=== PATIENT | male | born 1975 | race Caucasian/White ===

== ENCOUNTER 2021-10-12 18:18 | Observation (INO) ==
[2021-10-12] MEDS ORDERED: CYCLOBENZAPRINE HCL 10 MG TAB PO STA (19:37)
--- NOTE | 2021-10-12 19:44 | Emergency Department Note ---
Impression & Plan Left arm pain, Hypertensive urgency ED Provider Note CHIEF COMPLAINT: Left upper extremity pain HISTORY OF PRESENT ILLNESS: This 45-year-old male patient presents to the emergency department via private vehicle accompanied by his complaining of pain in the left upper extremity x2 days. The patient states he has a history of cervical radiculitis and cervical disc disease. He had similar symptoms about 2 years ago and went through extensive work-up and was ultimately seen by [facility] who performed an MRI of his neck which showed the cervical disc disease. He states he was started on gabapentin at that time, but his pain ultimately seemed to resolve on its own and he discontinued the gabapentin, noting that it made him "act weird". The patient states he normally sleeps on his right side. On Monday morning, he slept for 2 hours on his left side. He notes his hand was tucked up underneath his head. Since that time, he has been experiencing pain in the left upper extremity. He takes Tylenol in the evenings, but notes "I do not want to be on medicine while at school". 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 He has been taking intermittent Tylenol and did take a few doses of naproxen without relief of his symptoms. The patient rates the pain as aching and 9/10. The pain is intermittent in the shoulder, tricep region, forearm, and hand. The patient denies numbness and tingling. He notes his hand feels swollen, but has not been weak and he has not dropped objects or lost control of his hand. The patient denies chest pain or shortness of breath. There was no head injury and no loss of consciousness. The patient denies headache, blurred vision, abdominal pain, nausea, or vomiting. The patient denies change in personality. The symptoms are nonexertional in nature but also not necessarily reproducible to palpation or movement. No chest pain or dyspnea. REVIEW OF SYSTEMS: A 10 system review of systems was completed with positives a nd pertinent negatives listed in the HPI. ALLERGIES: None PHYSICAL EXAM: VITALS: Vitals are noted on the nurse's note and reviewed by myself. Patient is severely hypertensive with a blood pressure of 226/122. GENERAL: This is a 45-year-old white male, in no acute distress, nondiaphoretic, well-developed well-nourished. SKIN: Capillary reflex less than 2 seconds. HEENT: Normocephalic. PERRLA. EOMI. Nares patent. Mucous membranes moist. Neck is supple without nuchal rigidity. Cervical spine is not tender to palpation. The patient does not have tenderness of the paraspinal muscles bilaterally. There is no lymphadenopathy. MUSCULOSKELETAL: The patient has full range of motion of the bilateral arms. Strength 5/5 of the bilateral upper extremities. The patient does have tenderness with palpation of the shoulder and triceps region, reproducing the tenderness he has been experiencing NEURO: Patient was alert and oriented to person place and time. Normal sensation to light and sharp touch. No focal neurologic deficits. HEART: Regular rate and rhythm without murmurs, gallops, rubs. LUNGS: CTA bilaterally without wheezes, rhonchi, rales. EKG: NSR with a ventricular rate of 100 bpm. Incomplete RBBB. RVH. No ST elevation or depression. No T-wave inversion EMERGENCY DEPARTMENT COURSE: I examined the patient. Concern for hypertensive urgency/emergency given blood pressure of 226/122. Repeat blood pressure the same. EKG performed by nursing staff and reviewed by myself as noted. X-ray imaging of the cervical spine as well as the chest performed reviewed by myself and radiologist as noted. IV access obtained, labs drawn. Patient was medicated with IV fluids, labetalol, cyclobenzaprine. Blood pressure did improve to 137/99. Labs concerning for detectable troponin of 0.023. No leukocytosis or anemia. INR 1.0. Blood glucose is elevated at 305. I d iscussed the case with my attending physician. We decided to repeat EKG and troponin at midnight, 4 hours from the initial testing as well as further evaluate his symptoms with CT angiogram imaging of the neck and chest. I discussed findings of work-up at this time with the patient and his at bedside. Discussed recommendations with the patient and his of further work-up. The patient was hesitant to want to stay for repeat laboratory evaluation and imaging to be completed, but did ultimately agree. The patient does note that he has not been taking his Metformin because he ran out of the prescription and has been having difficulty getting it from mail order. He was medicated with IV morphine and Zofran. The case was signed out to Zaid Arcos PA-C pending CT imaging, repeat troponin and EKG. Please see his dictation regarding final disposition and management of this patient. Differential diagnosis includes benign hypertension, hypertensive emergency, cardiovascular pathology, toxicologic, pheochromocytoma, electrolyte abnormality, renal disease, endorgan damage, cervical radiculopathy, Cervical strain, fracture, cervical disc disease, lymphadenitis, meningitis, tumor, arterial dissection, thyroiditis, parotitis, mastoiditis, neurologic, as well as other pathologies. I attest that I have personally reviewed the patient's current medication list. Patient was found to have an elevated blood pressure and was referred to their primary doctor for recheck and further treatment. The chart was completed utilizing [employer] voice recognition software. Grammatical errors, random word insertions, pronoun errors, and incomplete sentences are an occasional consequence of this system due to software limitations, ambient noise, and hardware issues. Any formal questions or concerns about the content, text, or information contained within the body of this dictation should be directly addressed to the provider for clarification. Past Med/Surg History Medical History Cervical radiculitis Social History Smoking Status: Never smoker Preferred Language: Citizen Of [place] Feels Safe at Home: Yes Results & Data (ED) Vital Signs Vital Signs - 24 hr 10/12/21 18:47 10/12/21 20:16 10/12/21 20:38 Temperature 36.1 C L Temperature Source Temporal Artery Scan Pulse Rate 98 H Pulse Rate [Right Finger] 101 H 92 H Respiratory Rate 20 20 20 Respiratory Effort / Characteristics Non-Labored Spontaneous Respiratory Depth Normal Blood Pressure 226/122 H Blood Pressure [Right Arm] 189/101 H 137/99 Blood Pressure Mean 156 Blood Pressure Mean [Right Arm] 130 111 Pulse Oximetry 94 93 93 Oxygen Delivery Method Room Air Room Air Room Air Sepsis New/Unexplained Change in Mental Status N/A Sepsis Action Taken by Nursing No Action Required 10/12/21 22:40 Temperature Temperature Source Pulse Rate Pulse Rate [Right Finger] 99 H Respiratory Rate 20 Respiratory Effort / Characteristics Non-Labored Spontaneous Respiratory Depth Normal Blood Pressure Blood Pressure [Right Arm] 206/110 H Blood Pressure Mean Blood Pressure Mean [Right Arm] 142 Pulse Oximetry 93 Oxygen Delivery Method Room Air Sepsis New/Unexplained Change in Mental Status Sepsis Action Taken by Nursing Laboratory Data Result diagrams: 10/12/21 20:05 10/12/21 20:05 Lab Results 10/12/21 10/12/21 10/12/21 Range/Units 20:05 20:05 20:05 WBC 10.02 (4.8-10.8) K/uL RBC 6.16 H (4.7-6.1) M/uL Hgb 17.1 (14.0-18.0) g/dL Hct 50.7 (42-52) % MCV 82.3 (80-100) fL MCH 27.8 (25-34) pg MCHC 33.7 (32-36) g/dL RDW Std Deviation 41.9 (36.4-46.3) fL RDW Coeff of Linda 14.1 (11.5-14.5) % Plt Count 326 (130-400) K/uL MPV 12.1 H (7.4-10.4) fL Immature Gran % (Auto) 0.2 % Neut % (Auto) 68.7 % Lymph % (Auto) 22.5 % [place] % (Auto) 6.7 % Eos % (Auto) 1.6 % Baso % (Auto) 0.3 % Neut # (Auto) 6.89 H (1.4-6.5) K/uL Lymph # (Auto) 2.25 (1.2-3.4) K/uL [place] # (Auto) 0.67 H (0.11-0.59) K/uL Eos # (Auto) 0.16 (0-0.5) K/uL Baso # (Auto) 0.03 (0-0.2) K/uL Immature Gran # (Auto) 0.02 (0.00-0.02) K/uL PT 9.8 (9.0-12.0) Seconds INR 1.0 (0.9-1.1) Sodium 133 L (136-145) mmol/L Potassium 4.2 (3.5-5.1) mmol/L Chloride 100 (98-107) mmol/L Carbon Dioxide 23 (21-32) mmol/L Anion Gap 10.0 (3-11) BUN 14 (7-18) mg/dl Creatinine 1.01 (0.6-1.4) mg/dl Est Cr Clr Drug Dosing 152.1 ml/min Est GFR ( Amer) 105.1 ml/min Est GFR (Non-Af Amer) 90.7 ml/min BUN/Creatinine Ratio 13.9 (10-20) Glucose 305 H* (70-99) mg/dl Calcium 9.3 (8.5-10.1) mg/dl Total Bilirubin 0.5 (0.2-1) mg/dl AST 17 (15-37) U/L ALT 18 (12-78) U/L Alkaline Phosphatase 70 (45-117) U/L Troponin I 0.023 (0-0.045) ng/ml Total Protein 7.5 (6.4-8.2) gm/dl Albumin 3.2 L (3.4-5.0) gm/dl Globulin 4.3 H (2.5-4.0) gm/dl Albumin/Globulin Ratio 0.7 L (0.9-2) Beta-Hydroxybutyric Acd (0.2-2.81) mg/dl Specimen Hemolysis Administered Medications Discontinued Medications Cyclobenzaprine HCl (Cyclobenzaprine Hcl 10 Mg Tab) 10 mg PO NOW STA Stop: 10/12/21 19:38 Last Admin: 10/12/21 19:51 Dose: 10 mg Documented by: [id number] Sodium Chloride (Nss 1000ml) 1,000 mls @ 999 mls/hr IV .Q1H1M ONE Stop: 10/12/21 20:51 Last Infusion: 10/12/21 21:23 Dose: 0 mls/hr Documented by: [id number] Admin: 10/12/21 20:18 Dose: 999 mls/hr Documented by: [id number] Ioversol (Optiray 320 125ml) 121 ml IV ONCE ONE Stop: 10/12/21 22:34 Last Admin: 10/12/21 22:33 Dose: 121 ml Documented by: [id number] Labetalol HCl (Labetalol Hcl Iv 5 Mg/Ml 20ml) 10 mg IV NOW STA Stop: 10/12/21 20:06 Last Admin: 10/12/21 20:18 Dose: 10 mg Documented by: [id number] Cosigned by: [id number] Labetalol HCl (Labetalol Hcl Iv 5 Mg/Ml 20ml) 10 mg IV NOW STA Stop: 10/12/21 22:45 Last Admin: 10/12/21 22:51 Dose: 10 mg Documented by: [id number] Cosigned by: [id number] Morphine Sulfate (Morphine Sulfate 10 Mg/Ml Carp/Vial) 8 mg IV NOW STA Stop: 10/12/21 21:28 Last Admin: 10/12/21 21:36 Dose: 8 mg Documented by: [id number] Ondansetron HCl (Ondansetron Inj 2 Mg/Ml 2 Ml Vial) 4 mg IV NOW STA Stop: 10/12/21 21:28 Last Admin: 10/12/21 21:36 Dose: 4 mg Documented by: [id number] Imaging Data Radiologist's Impression: Cervical Spine X-Ray 10/12/21 19:37 XR cervical spine 2 or 3V HISTORY: 45 years-old Male pain, LUE radiculopathy . Pain with left upper extremity radicular symptoms COMPARISON: Chest radiograph of same day TECHNIQUE: 3 views of the cervical spine FINDINGS: Mild intervertebral disc space narrowing at C5-C6 and C6-C7 with minimal spondylitic spurring and facet arthrosis. Slight kyphosis centered at C6 or C7. No acute fracture, subluxation or endplate erosion. No prevertebral swelling. IMPRESSION: 1. No acute fracture or subluxation. 2. Mild degenerative changes of the lower lumbar spine. ACT 112: Negative or not required by law. The above report was generated using voice recognition software. It may contain grammatical, syntax or spelling errors. Electronically signed by: Antonino Will M.D. 10/12/2021 8:20 PM Chest X-Ray 10/12/21 19:52 XR chest 1V not portable HISTORY: 45 years-old Male LUE pain . Pain of the left upper extremity COMPARISON: Cervical spine radiographs of same day TECHNIQUE: PA view of the chest FINDINGS: Cardiac silhouette is upper limits of normal in size. No pneumothorax, pleural effusion, airspace consolidation or overt pulmonary edema. Nonspecific interstitial coarsening of the lung bases. Mild degenerative changes of the shoulders and spine. IMPRESSION: Mild nonspecific bibasilar interstitial coarsening likely reflects atelectasis. A nonspecific pneumonitis could appear similarly. ACT 112: Negative or not required by law. The above report was generated using voice recognition software. It may contain grammatical, syntax or spelling errors. Electronically signed by: Antonino Will M.D. 10/12/2021 8:18 PM Discharge Plan Visit Data Chief Complaint: Neck Injury/Pain Stated Complaint: NECK PAIN ED Provider: Rich Bass ED Midlevel Provider: Zaid Arcos Discharge Problem: Left arm pain, Hypertensive urgency Patient Disposition: Still a Patient Forms Stand Alone Forms: [facility] Referrals Referrals: Ariel Jameson Jr, DO [Physician] -
[2021-10-12] MEDS ORDERED: SODIUM CHLORIDE 0.9% 1000ML 1,000 ML IV ONE (19:51)
[2021-10-12] MEDS ORDERED: LABETALOL HCL IV 5 MG/ML 20ML IV STA ×2 (20:05→22:44)
--- NOTE | 2021-10-12 20:19 | XRay Report ---
XR chest 1V not portable HISTORY: 45 years-old Male LUE pain . Pain of the left upper extremity COMPARISON: Cervical spine radiographs of same day TECHNIQUE: PA view of the chest FINDINGS: Cardiac silhouette is upper limits of normal in size. No pneumothorax, pleural effusion, airspace con solidation or overt pulmonary edema. Nonspecific interstitial coarsening of the lung bases. Mild dege nerative changes of the shoulders and spine. IMPRESSION: Mild nonspecific bibasilar interstitial coarsening likely reflects atelectasis. A nonspec ific pneumonitis could appear similarly. ACT 112: Negative or not required by law. The above report was generated using voice recognition software. It may contain grammatical, syntax o r spelling errors. Electronically signed by: Antonino Will M.D. 10/12/2021 8:18 PM
--- NOTE | 2021-10-12 20:22 | XRay Report ---
XR cervical spine 2 or 3V HISTORY: 45 years-old Male pain, LUE radiculopathy . Pain with left upper extremity radicular sympto ms COMPARISON: Chest radiograph of same day TECHNIQUE: 3 views of the cervical spine FINDINGS: Mild intervertebral disc space narrowing at C5-C6 and C6-C7 with minimal spondylitic spurring and fac et arthrosis. Slight kyphosis centered at C6 or C7. No acute fracture, subluxation or endplate erosio n. No prevertebral swelling. IMPRESSION: 1. No acute fracture or subluxation. 2. Mild degenerative changes of the lower lumbar spine. ACT 112: Negative or not required by law. The above report was generated using voice recognition software. It may contain grammatical, syntax o r spelling errors. Electronically signed by: Antonino Will M.D. 10/12/2021 8:20 PM
[2021-10-12 20:26] LABS: Basophils # (auto) 0.03 K/uL (0-0.2); Basophils % (auto) 0.3 %; Eosinophils # (auto) 0.16 K/uL (0-0.5); Eosinophils % (auto) 1.6 %; Hematocrit (blood only) 50.7 % (42-52); Hemoglobin 17.1 g/dL (14.0-18.0); Immature Granulocytes # (auto) 0.02 K/uL (0.00-0.02); Immature Granulocytes % (auto) 0.2 %; Lymphocytes # (auto) 2.25 K/uL (1.2-3.4); Lymphocytes % (auto) 22.5 %; Mean Corpuscular Hemoglobin 27.8 pg (25-34); Mean Corpuscular Hgb Conc 33.7 g/dL (32-36); Mean Corpuscular Volume 82.3 fL (80-100); Mean Platelet Volume 12.1 fL (7.4-10.4); Monocytes # (auto) 0.67 K/uL (0.11-0.59); Monocytes % (auto) 6.7 %; Neutrophils # (auto) 6.89 K/uL (1.4-6.5); Neutrophils % (auto) 68.7 %; Platelet Count 326 K/uL (130-400); RDW Coefficient of Variation 14.1 % (11.5-14.5); RDW Standard Deviation 41.9 fL (36.4-46.3); Red Blood Count 6.16 M/uL (4.7-6.1); White Blood Count 10.02 K/uL (4.8-10.8)
[2021-10-12 20:40] LABS: Prothrombin Time 9.8 Seconds (9.0-12.0)
[2021-10-12 21:01] LABS: Albumin Globulin Ratio 0.7 (0.9-2); Albumin Level 3.2 gm/dl (3.4-5.0); BUN Creatinine Ratio 13.9 (10-20); Bilirubin,Total 0.5 mg/dl (0.2-1); Calcium 9.3 mg/dl (8.5-10.1); Creatinine Clr Calc Pharmacy 152.1 ml/min; Est GFR (African American) 105.1 ml/min; Est GFR (Non-African American) 90.7 ml/min; Globulin 4.3 gm/dl (2.5-4.0); Potassium 4.2 mmol/L (3.5-5.1); Total Protein 7.5 gm/dl (6.4-8.2); Troponin I 0.023 ng/ml (0-0.045)
[2021-10-12] MEDS ORDERED: ONDANSETRON INJ 2 MG/ML 2 ML VIAL IV STA (21:27)
[2021-10-12] MEDS ORDERED: MoRPHine SULFATE 10 MG/ML CARP/VIAL IV STA (21:27)
--- NOTE | 2021-10-12 22:10 | Emergency Department Note ---
Impression & Plan Hypertensive urgency, Left arm pain ED Provider Note Patient care was assumed from Evangelina Tejeda PA-C, at the time of shift change. Please see Ms. Tejeda's dictation for full history of present illness and emergency department course prior to my assumption of care. In short, the patient has been experiencing vague left shoulder pain that may be cervical radicular in nature, as he has had this in the past. Upon arrival the patient was very hypertensive, and ultimately did require labetalol to improve his blood pressure. He does have a detectable troponin that is technically negative, however at the time of shift change repeat EKG, CT scans, and troponin are pending. He is an uncontrolled diabetic with glucose greater than 300. Patient CT scans are as below: Preliminary Findings Only See Final Report For Complete Findings CT C SPINE: Mild degenerative disc disease and facet arthrosis throughout the cervical spine. No acute fracture or traumatic subluxation is identified. There is slight straightening of the normal cervical curvature suggesting spasm. Thecal sac contents are not well visualized on this examination due to body habitus and technique. If there is clinical concern for disc herniation consider MRI for better visualization Radiologist:Dulce Maria Hosutonne:[phone] Preliminary Findings Only See Final Report For Complete Findings CTA CHEST: The pulmonary arterial tree is well-opacified with contrast. There is moderate motion artifact blurring the pulmonary vasculature. No pulmonary emboli are identified. The thoracic aorta is nondilated. There is no aneurysm or dissection. The heart is not enlarged. No mediastinal or axillary lymph and up the arm mass is seen. The lungs are moderately inflated. There is a trace amount of scattered interstitial infiltrate or perihilar subsegmental atelectasis. No focal consolidation is seen. No pneumothorax or pleural effusion is present. Limited images of the upper abdomen appear unremarkable. Mild degenerative changes in the thoracic spine. No fracture or bone lesion identified. Radiologist:SHIRLEY Houstonhone:[phone] Preliminary Findings Only See Final Report For Complete Findings CTA NECK: The aortic arch is nondilated. The great vessel origins are widely patent. The carotid bifurcation is normal bilaterally. No atherosclerotic plaque, stenosis, or dissection is seen involving the common or internal carotid arteries. The vertebral arteries widely patent bilaterally. No stenosis or dissection. Mild degenerative changes in the lower cervical spine. Probable mild spinal stenosis at C5-6 with the canal measuring 9-10 mm. Radiologist:Rich Mathias, [facility]:[phone] Patient's repeat EKG is essentially identical to previous. Repeat troponin is detectable, and is higher than initial troponin, which is concerning, as it is trending upwards. I did have a lengthy discussion with the patient and family regarding options of care. The patient at a minimum seems to be in hypertensive urgency with some heart strain. His blood pressure is controlled with labetalol, and evidently he does not take any home blood pressure medications. The patient feels that his symptoms may be related to his neck, however with an elevating troponin it does not seem reasonable to send him home. Covid was performed and negative. The case was discussed with the on-call hospitalist team who agreed to evaluate the patient here at bedside. Please see their dictation for further patient course, plan, disposition. Past Med/Surg History Medical History (Updated 10/13/21 @ 11:56 by Daniel Zuleta DO) Cervical radiculitis Diabetes mellitus Hyperlipidemia Morbid obesity with BMI of 50.0-59.9, adult Social History Smoking Status: Never smoker Hx Alcohol Use: No Hx Substance Use: No Preferred Language: Guyanese Communication Ability: Effective Air Grinder Required: No Beliefs That Will Affect Care: None Current Living Situation: Spouse Feels Safe at Home: Yes Assistive Devices: Glasses Allergies Allergies Allergy/AdvReac Type Severity Reaction Status Date / Time No Known Allergies Allergy Verified 10/13/21 01:17 Home Meds Home Medications Medication Instructions Recorded Confirmed cholecalciferol (vitamin D3) 25 0 mcg PO DAILY 10/13/21 10/13/21 mcg (1,000 unit) capsule (Vitamin D3) metformin 1,000 mg tablet 0 mg PO BID 10/13/21 10/13/21 rosuvastatin 10 mg tablet 0 mg PO DAILY 10/13/21 10/13/21 vitamin B complex 1 tab PO DAILY 10/13/21 10/13/21 Results & Data (ED) Vital Signs Vital Signs - 24 hr 10/12/21 18:47 10/12/21 20:16 10/12/21 20:38 Temperature 36.1 C L Temperature Source Temporal Artery Scan Pulse Rate 98 H Pulse Rate [Right Finger] 101 H 92 H Respiratory Rate 20 20 20 Respiratory Effort / Characteristics Non-Labored Spontaneous Respiratory Depth Normal Blood Pressure 226/122 H Blood Pressure [Right Arm] 189/101 H 137/99 Blood Pressure Mean 156 Blood Pressure Mean [Right Arm] 130 111 Pulse Oximetry 94 93 93 Oxygen Delivery Method Room Air Room Air Room Air Sepsis New/Unexplained Change in Mental Status N/A Sepsis Action Taken by Nursing No Action Required 10/12/21 22:40 10/13/21 00:00 10/13/21 01:29 Temperature 36.6 C Temperature Source Oral Pulse Rate Pulse Rate [Right Finger] 99 H 91 H 93 H Respiratory Rate 20 20 20 Respiratory Effort / Characteristics Non-Labored Spontaneous Moaning Respiratory Depth Normal Normal Blood Pressure Blood Pressure [Right Arm] 206/110 H 139/84 157/105 H Blood Pressure Mean Blood Pressure Mean [Right Arm] 142 102 122 Pulse Oximetry 93 97 97 Oxygen Delivery Method Room Air Room Air Room Air Sepsis New/Unexplained Change in Mental Status Sepsis Action Taken by Nursing 10/13/21 01:35 Temperature Temperature Source Pulse Rate Pulse Rate [Right Finger] Respiratory Rate Respiratory Effort / Characteristics Respiratory Depth Blood Pressure Blood Pressure [Right Arm] 143/97 H Blood Pressure Mean Blood Pressure Mean [Right Arm] 112 Pulse Oximetry Oxygen Delivery Method Sepsis New/Unexplained Change in Mental Status Sepsis Action Taken by Nursing Laboratory Data Result diagrams: 10/12/21 20:05 10/12/21 20:05 Lab Results 10/12/21 10/12/21 10/12/21 Range/Units 20:05 20:05 20:05 WBC 10.02 (4.8-10.8) K/uL RBC 6.16 H (4.7-6.1) M/uL Hgb 17.1 (14.0-18.0) g/dL Hct 50.7 (42-52) % MCV 82.3 (80-100) fL MCH 27.8 (25-34) pg MCHC 33.7 (32-36) g/dL RDW Std Deviation 41.9 (36.4-46.3) fL RDW Coeff of Linda 14.1 (11.5-14.5) % Plt Count 326 (130-400) K/uL MPV 12.1 H (7.4-10.4) fL Immature Gran % (Auto) 0.2 % Neut % (Auto) 68.7 % Lymph % (Auto) 22.5 % Arroyo % (Auto) 6.7 % Eos % (Auto) 1.6 % Baso % (Auto) 0.3 % Neut # (Auto) 6.89 H (1.4-6.5) K/uL Lymph # (Auto) 2.25 (1.2-3.4) K/uL Arroyo # (Auto) 0.67 H (0.11-0.59) K/uL Eos # (Auto) 0.16 (0-0.5) K/uL Baso # (Auto) 0.03 (0-0.2) K/uL Immature Gran # (Auto) 0.02 (0.00-0.02) K/uL PT 9.8 (9.0-12.0) Seconds INR 1.0 (0.9-1.1) Sodium 133 L (136-145) mmol/L Potassium 4.2 (3.5-5.1) mmol/L Chloride 100 (98-107) mmol/L Carbon Dioxide 23 (21-32) mmol/L Anion Gap 10.0 (3-11) BUN 14 (7-18) mg/dl Creatinine 1.01 (0.6-1.4) mg/dl Est Cr Clr Drug Dosing 152.1 ml/min Est GFR ( Amer) 105.1 ml/min Est GFR (Non-Af Amer) 90.7 ml/min BUN/Creatinine Ratio 13.9 (10-20) Glucose 305 H* (70-99) mg/dl Estimat Average Glucose mg/dl Hemoglobin A1c (4.5-5.6) % Calcium 9.3 (8.5-10.1) mg/dl Total Bilirubin 0.5 (0.2-1) mg/dl AST 17 (15-37) U/L ALT 18 (12-78) U/L Alkaline Phosphatase 70 (45-117) U/L Troponin I 0.023 (0-0.045) ng/ml Total Protein 7.5 (6.4-8.2) gm/dl Albumin 3.2 L (3.4-5.0) gm/dl Globulin 4.3 H (2.5-4.0) gm/dl Albumin/Globulin Ratio 0.7 L (0.9-2) Beta-Hydroxybutyric Acd (0.2-2.81) mg/dl Specimen Hemolysis SARS-CoV-2, RNA, NAAT (NEGATIVE) 10/12/21 10/13/21 10/13/21 Range/Units 20:05 00:05 01:28 WBC (4.8-10.8) K/uL RBC (4.7-6.1) M/uL Hgb (14.0-18.0) g/dL Hct (42-52) % MCV (80-100) fL MCH (25-34) pg MCHC (32-36) g/dL RDW Std Deviation (36.4-46.3) fL RDW Coeff of Linda (11.5-14.5) % Plt Count (130-400) K/uL MPV (7.4-10.4) fL Immature Gran % (Auto) % Neut % (Auto) % Lymph % (Auto) % Arroyo % (Auto) % Eos % (Auto) % Baso % (Auto) % Neut # (Auto) (1.4-6.5) K/uL Lymph # (Auto) (1.2-3.4) K/uL Arroyo # (Auto) (0.11-0.59) K/uL Eos # (Auto) (0-0.5) K/uL Baso # (Auto) (0-0.2) K/uL Immature Gran # (Auto) (0.00-0.02) K/uL PT (9.0-12.0) Seconds INR (0.9-1.1) Sodium (136-145) mmol/L Potassium (3.5-5.1) mmol/L Chloride (98-107) mmol/L Carbon Dioxide (21-32) mmol/L Anion Gap (3-11) BUN (7-18) mg/dl Creatinine (0.6-1.4) mg/dl Est Cr Clr Drug Dosing ml/min Est GFR ( Amer) ml/min Est GFR (Non-Af Amer) ml/min BUN/Creatinine Ratio (10-20) Glucose (70-99) mg/dl Estimat Average Glucose 298 mg/dl Hemoglobin A1c 12.0 H (4.5-5.6) % Calcium (8.5-10.1) mg/dl Total Bilirubin (0.2-1) mg/dl AST (15-37) U/L ALT (12-78) U/L Alkaline Phosphatase (45-117) U/L Troponin I 0.036 (0-0.045) ng/ml Total Protein (6.4-8.2) gm/dl Albumin (3.4-5.0) gm/dl Globulin (2.5-4.0) gm/dl Albumin/Globulin Ratio (0.9-2) Beta-Hydroxybutyric Acd (0.2-2.81) mg/dl Specimen Hemolysis SARS-CoV-2, RNA, NAAT NEGATIVE (NEGATIVE) Administered Medications Insulin Aspart (Insulin Aspart 100 Units/Ml 3 Ml Pen) 0 units SC ACHS YOLA Stop: 11/12/21 05:14 Last Admin: 10/13/21 11:52 Dose: 11 units Documented by: [id number] Cosigned by: [id number] Admin: 10/13/21 07:56 Dose: Not Given Documented by: [id number] Admin: 10/13/21 07:48 Dose: 13 units Documented by: [id number] Cosigned by: [id number] Metoprolol Tartrate (Metoprolol Tartrate 25 Mg Tab) 25 mg PO BID [facility] Stop: 11/12/21 04:59 Last Admin: 10/13/21 09:04 Dose: Not Given Documented by: [id number] Admin: 10/13/21 09:02 Dose: 25 mg Documented by: [id number] Morphine Sulfate (Morphine Sulfate 4 Mg/Ml 1 Ml Carp\Vial) 4 mg IV Q3H PRN PRN Reason: Severe Pain (7,8,9,10) Stop: 10/27/21 04:54 Last Admin: 10/13/21 05:27 Dose: 4 mg Documented by: [id number] Rosuvastatin Calcium (Rosuvastatin Calcium 10 Mg Tab) 10 mg PO DAILY YOLA Stop: 11/12/21 08:59 Last Admin: 10/13/21 07:50 Dose: 10 mg Documented by: [id number] Vitamin B Complex (Vitamin B Complex Tab) 1 tab PO DAILY YOLA Stop: 11/12/21 08:59 Last Admin: 10/13/21 07:50 Dose: 1 tab Documented by: [id number] Vitamin D (Cholecalciferol 1,000 Units 25 Mcg Tab) 1,000 units PO DAILY YOLA Stop: 11/12/21 08:59 Last Admin: 10/13/21 07:49 Dose: 1,000 units Documented by: [id number] Discontinued Medications Cyclobenzaprine HCl (Cyclobenzaprine Hcl 10 Mg Tab) 10 mg PO NOW STA Stop: 10/12/21 19:38 Last Admin: 10/12/21 19:51 Dose: 10 mg Documented by: [id number] Sodium Chloride (Nss 1000ml) 1,000 mls @ 999 mls/hr IV .Q1H1M ONE Stop: 10/12/21 20:51 Last Infusion: 10/12/21 21:23 Dose: 0 mls/hr Documented by: [id number] Admin: 10/12/21 20:18 Dose: 999 mls/hr Documented by: [id number] Ioversol (Optiray 320 125ml) 121 ml IV ONCE ONE Stop: 10/12/21 22:34 Last Admin: 10/12/21 22:33 Dose: 121 ml Documented by: [id number] Labetalol HCl (Labetalol Hcl Iv 5 Mg/Ml 20ml) 10 mg IV NOW STA Stop: 10/12/21 20:06 Last Admin: 10/12/21 20:18 Dose: 10 mg Documented by: [id number] Cosigned by: [id number] Labetalol HCl (Labetalol Hcl Iv 5 Mg/Ml 20ml) 10 mg IV NOW STA Stop: 10/12/21 22:45 Last Admin: 10/12/21 22:51 Dose: 10 mg Documented by: [id number] Cosigned by: [id number] Morphine Sulfate (Morphine Sulfate 10 Mg/Ml Carp/Vial) 8 mg IV NOW STA Stop: 10/12/21 21:28 Last Admin: 10/12/21 21:36 Dose: 8 mg Documented by: [id number] Ondansetron HCl (Ondansetron Inj 2 Mg/Ml 2 Ml Vial) 4 mg IV NOW STA Stop: 10/12/21 21:28 Last Admin: 10/12/21 21:36 Dose: 4 mg Documented by: [id number] Imaging Data Radiologist's Impression: Chest CTA 10/12/21 21:13 CT ANGIOGRAPHY OF THE CHEST DISSECTION PROTOCOL CLINICAL HISTORY: Left arm pain. Hypotension. Evaluate for dissection. COMPARISON STUDY: Chest radiograph performed earlier today. TECHNIQUE: Before and following the IV administration of 121 mL of Optiray, helical axial images of the chest were obtained. Maximal intensity projections and sagittal and coronal reformats were viewed on an independent 3D workstation. IV contrast was administered without complication. Automated exposure control was utilized for the study. A dose lowering technique was utilized adhering to the principles of ALARA. FINDINGS: Caliber of the thoracic aorta is normal. There is no intramural hematoma or thoracic aortic dissection. Mild cardiomegaly is noted. No pericardial effusion. No enlarged thoracic lymph nodes are noted. This study was not performed to assess the pulmonary arteries. However, there is no central pulmonary embolus. No pneumothorax or pleural effusion is noted. There are mild groundglass opacities with mosaic attenuation within the lungs. Several perifissural right lung nodules are likely benign. No acute fracture or suspicious lesion is identified within visualized portions of the bony thorax. There is probable hepatic steatosis and hepatomegaly, partially imaged on this examination. IMPRESSION: 1. No thoracic aortic dissection. 2. Mild cardiomegaly. 3. Mild groundglass opacities with mosaic attenuation within the lungs. ACT 112: Negative or not required by law. Electronically signed by: Miki Shah M.D. 10/13/2021 8:[address] 10/12/21 21:45 CT cervical spine wo con CLINICAL HISTORY: cervical radiculopathy . Left arm pain COMPARISON STUDY: No previous studies for comparison. CT DOSE: 3627.13 mGy.cm TECHNIQUE: Standard CT of the Cervical Spine was performed without IV contrast. A dose lowering technique was utilized adhering to the principles of ALARA. FINDINGS: Bones: There is mild straightening and reversal of the expected cervical lordosis related to the degenerative changes present. There is no evidence for an acute fracture or malalignment. The heights of the vertebral bodies are maintained. The vertebral bodies are in anatomic alignment. The odontoid is intact and the atlantoaxial articulation is within normal limits. Disc spaces: At C4-5, there is mild disc space narrowing with no gross disc herniation identified. At C5-6, there is mild disc space narrowing with disc/osteophyte complex present. No gross disc herniation is identified. At C6-C7, there is moderate to marked disc space narrowing with disc/osteophyte complex present. Again, no gross disc herniation is identified. Apophyseal joints:The apophyseal joints are intact bilaterally. Soft tissues:The prevertebral soft tissues are within normal limits. IMPRESSION: No acute abnormality. Degenerative disc disease at the lower 3 disc space levels, particularly at C6-7. However, no focal disc protrusion/herniation can be identified. If the patient's symptoms persist, follow-up MRI would be the study of choice for further evaluation. ACT 112: Positive. There are findings on this exam that require communication between the performing entity and the patient following Patient Test Result Information Act ([place] Act 112) guidelines. Electronically signed by: Mitch Flores M.D. 10/13/2021 7:08 AM Neck CTA 10/12/21 21:45 CT angio neck with con CLINICAL HISTORY: left arm pain, HTN COMPARISON STUDY: No previous studies for comparison. TECHNIQUE: CT Angio of the neck was performed.followed by image post processing with coronal, and sagittal MIP reformats.. Stenosis assessment by NASCET criteria. Contrast Volume: Optiray 320, 121 ml FINDINGS: Vascular findings: Right common carotid artery: Patent without significant stenosis. Right internal carotid artery: Patent without significant stenosis. Right vertebral artery: Patent without significant stenosis. Left common carotid artery: Patent without significant stenosis. Left internal carotid artery: Patent without significant stenosis. Left vertebral artery: Patent without significant stenosis. Nonvascular findings: The parotid and submandibular salivary glands appear normal. There is no enlarge d cervical adenopathy noted. The airway appears patent. The thyroid gland appears within normal limits. The lung apices appear within normal limits.There is evidence for degenerative change of the cervical spine. Impression: Essentially negative CT angiogram of the neck with contrast. ACT 112: Negative or not required by law. Electronically signed by: Mitch Flores M.D. 10/13/2021 7:12 AM Extremity Venous Study 10/13/21 00:00 LEFT UPPER EXTREMITY VENOUS DOPPLER ULTRASOUND CLINICAL HISTORY: Left arm pain. COMPARISON STUDY: No previous studies for comparison. TECHNIQUE: Sonography of the deep venous system of the left upper extremity was performed. FINDINGS: The left internal jugular, subclavian, axillary, brachial, radial, ulnar, cephalic and basilic veins are patent. No venous thrombus is identified within the left upper extremity. IMPRESSION: No deep venous thrombus within the left upper extremity. ACT 112: Negative or not required by law. Electronically signed by: Miki Shah M.D. 10/13/2021 6:41 AM Discharge Plan Visit Data Chief Complaint: Neck Injury/Pain Stated Complaint: NECK PAIN ED Provider: Rich Bass ED Midlevel Provider: Zaid Arcos Discharge Problem: Hypertensive urgency, Left arm pain Patient Disposition: Admitted As Inpatient Discharge Instructions Interventions: ED Discharge Assessment Last Done: 10/13/21 02:00
[2021-10-12] MEDS ORDERED: OPTIRAY 320 125ml IV ONE (22:33)
--- NOTE | 2021-10-13 01:46 | History & Physical Report ---
Date of Service October 13, 2021 Assessment & Plan (1) Neck pain: Plan: Neck pain/left upper extremity swelling and pain/numbness of first through fourth digits left hand- Studies ordered by the emergency department-CTA chest: No acute findings. CT cervical spine showed muscle spasm. CTA neck showed mild lower cervical disc disease and probable mild spinal stenosis at C5-6 level. Patient reports a history of an MRI approximately 2 years ago ordered by [facility] performed at 611 MRI which suggested a herniated disc that responded to conservative therapy. He is not had problems since that time until [address] Zuleta, orthopedic spine surgery, to assess for the need for imaging such as MRI of C-spine. Symptomatology of left hand would imply involvement of C6-7 We will hold off on significant steroid use to due to uncontrolled diabetes. [place] 5/325, 1 p.o. every 4 hours as needed moderate pain [place] 5/325, 2 p.o. every 4 hours as needed severe pain Morphine sulfate 4 mg IV every 3 hours as needed severe pain (2) Hypertensive urgency: Plan: Elevated blood pressure/hypertensive urgency/detectable but increasing troponin- The patient will be admitted to telemetry for serial cardiac enzymes, serial EKG's, cardiac rhythm monitoring and a 2-D echocardiogram with Dopplers. Initial troponin 0.023, did increase 2 hours later to 0.036 Blood pressure upon arrival was 226/122 while he was still actively in pain. He was given labetalol 10 mg IV x2, with blood pressure return to the 140s/90s He has no history of elevated blood pressure or needing treatment for such. Likely was in part secondary to above-noted pain Start metoprolol tartrate 25 mg p.o. twice daily (3) Left upper extremity swelling: Plan: Order venous Doppler left upper extremity, with results pending at this time (4) Numbness of left hand: Plan: See above (5) Diabetes mellitus: Plan: Hold Metformin Place on Accu-Cheks before meals and at bedtime with NovoLog coverage per scale Glucose 305 upon admission labs Check hemoglobin A1c Hold off on any high-dose steroids at this time unless absolutely indicated (6) Hyperlipidemia: Plan: On rosuvastatin unknown dose, will place on 10 mg daily (7) Morbid obesity with BMI of 50.0-59.9, adult: Plan: Noted History of Present Illness Chief Complaint: The patient presents to the emergency department with complaint of neck pain, pain and swelling in his left upper extremity, with numbness in his first through fourth digits on his left hand of 2 days duration. Primary Care Provider: Sebastian Hooks DO The patient is a 45-year-old male with a past medical history including diabetes mellitus, hyperlipidemia and morbid obesity. He presents to the emergency department with 2 days of persistent and worsening neck pain, pain and swelling left upper extremity, and numbness in first through fourth digits of his left hand. He had symptoms similar to this 2 years ago, and underwent an MRI at [facility] which showed he had a herniated disc that was treated conservatively. He underwent physical therapy and has not had a problem since that time until 2 days ago. His symptoms occurred when he fell asleep for a couple of hours with his left arm curled under his head, and his head tilted downward. He denies any recent trauma or history of previous trauma. Allergies Allergy/AdvReac Type Severity Reaction Status Date / Time No Known Allergies Allergy Verified 10/13/21 01:17 Home Medications Medication Instructions Recorded Confirmed Type cholecalciferol (vitamin D3) 25 0 mcg PO DAILY 10/13/21 10/13/21 History mcg (1,000 unit) capsule (Vitamin D3) metformin 1,000 mg tablet 0 mg PO BID 10/13/21 10/13/21 History rosuvastatin 10 mg tablet 0 mg PO DAILY 10/13/21 10/13/21 History vitamin B complex 1 tab PO DAILY 10/13/21 10/13/21 History Past Med/Surg History Medical History (Updated 10/13/21 @ 04:45 by Daniel Ye MD) Cervical radiculitis Diabetes mellitus Hyperlipidemia Morbid obesity with BMI of 50.0-59.9, adult Social History Smoking Status: Never smoker Hx Alcohol Use: No Hx Substance Use: No Preferred Language: Fijian Communication Ability: Effective Integrity Manager Required: No Beliefs That Will Affect Care: None Current Living Situation: Spouse Other Information That Helps Us Care for You: No Feels Safe at Home: Yes Safety Concerns: Feels Safe At This Time Assistive Devices: Glasses Review of Systems Review of Systems: The patient denies chest pain, palpitations, shortness of breath, dyspnea on exertion, cough, lower extremity swelling, sore throat, fevers, chills, sweats, weight change, fatigue, nausea, vomiting, diarrhea , constipation, abdominal pain, pelvic pain, blood in urine or stool, dysuria, urinary frequency or urgency, lightheadedness, dizziness, headache, memory loss, loss of consciousness, rash, abnormal bruising or bleeding, imbalance, focal or generalized weakness, numbness or tingling in right arm or bilateral legs, generalized arthralgias or myalgias, or night sweats. The review of systems is otherwise negative other than for that already noted above, and at least 10 systems have been reviewed. Physical Exam Physical Exam: The patient is awake, alert and oriented 3, well developed and well nourished, normocephalic and atraumatic, lying in bed and in mild acute distress due to positional neck pain HEENT--PERRL, EOMI, mucous membranes and oropharynx normal. Neck--supple. No JVD. No bruits. Thyroid normal, trachea midline, no adenopathy. Heart--normal S1 and S2. No murmurs, rubs or gallops. Lungs--clear bilaterally, no respiratory distress, no accessory muscle use. Abdomen--normal bowel sounds and soft. Nontender. Nondistended. Morbidly obese Extremities--left upper extremity extending to hand with nonpitting edema, compared to the right Dermatologic--normal skin turgor, normal color, no abnormal lymph nodes, no rash. Neurologic--cranial nerves II through XII grossly intact. Rheumatologic--limited exam due to pain Psychiatric--normal affect. Results & Data Results & Data ([facility]) Vital Signs (Past 12 Hours) Vital Signs Temp Pulse Pulse Resp BP BP Pulse Ox 10/13/21 01:35 143/97 H 10/13/21 01:29 36.6 C 93 H 20 157/105 H 97 10/13/21 00:00 91 H 20 139/84 97 10/12/21 22:40 99 H 20 206/110 H 93 10/12/21 20:38 92 H 20 137/99 93 10/12/21 20:16 101 H 20 189/101 H 93 10/12/21 18:47 36.1 C L 98 H 20 226/122 H 94 Laboratory Results Laboratory Results WBC 10.02 K/uL (4.8-10.8) 10/12/21 20:05 RBC 6.16 M/uL (4.7-6.1) H 10/12/21 20:05 Hgb 17.1 g/dL (14.0-18.0) 10/12/21 20:05 Hct 50.7 % (42-52) 10/12/21 20:05 MCV 82.3 fL (80-100) 10/12/21 20:05 MCH 27.8 pg (25-34) 10/12/21 20:05 MCHC 33.7 g/dL (32-36) 10/12/21 20:05 RDW Std Deviation 41.9 fL (36.4-46.3) 10/12/21 20:05 RDW Coeff of Linda 14.1 % (11.5-14.5) 10/12/21 20:05 Plt Count 326 K/uL (130-400) 10/12/21 20:05 MPV 12.1 fL (7.4-10.4) H 10/12/21 20:05 Immature Gran % (Auto) 0.2 % 10/12/21 20:05 Neut % (Auto) 68.7 % 10/12/21 20:05 Lymph % (Auto) 22.5 % 10/12/21 20:05 [place] % (Auto) 6.7 % 10/12/21 20:05 Eos % (Auto) 1.6 % 10/12/21 20:05 Baso % (Auto) 0.3 % 10/12/21 20:05 Neut # (Auto) 6.89 K/uL (1.4-6.5) H 10/12/21 20:05 Lymph # (Auto) 2.25 K/uL (1.2-3.4) 10/12/21 20:05 [place] # (Auto) 0.67 K/uL (0.11-0.59) H 10/12/21 20:05 Eos # (Auto) 0.16 K/uL (0-0.5) 10/12/21 20:05 Baso # (Auto) 0.03 K/uL (0-0.2) 10/12/21 20:05 Immature Gran # (Auto) 0.02 K/uL (0.00-0.02) 10/12/21 20:05 PT 9.8 Seconds (9.0-12.0) 10/12/21 20:05 INR 1.0 (0.9-1.1) 10/12/21 20:05 Sodium 133 mmol/L (136-145) L 10/12/21 20:05 Potassium 4.2 mmol/L (3.5-5.1) 10/12/21 20:05 Chloride 100 mmol/L (98-107) 10/12/21 20:05 Carbon Dioxide 23 mmol/L (21-32) 10/12/21 20:05 Anion Gap 10.0 (3-11) 10/12/21 20:05 BUN 14 mg/dl (7-18) 10/12/21 20:05 Creatinine 1.01 mg/dl (0.6-1.4) 10/12/21 20:05 Est Cr Clr Drug Dosing 152.1 ml/min 10/12/21 20:05 Est GFR ( Amer) 105.1 ml/min 10/12/21 20:05 Est GFR (Non-Af Amer) 90.7 ml/min 10/12/21 20:05 BUN/Creatinine Ratio 13.9 (10-20) 10/12/21 20:05 Glucose 305 mg/dl (70-99) H* 10/12/21 20:05 Calcium 9.3 mg/dl (8.5-10.1) 10/12/21 20:05 Total Bilirubin 0.5 mg/dl (0.2-1) 10/12/21 20:05 AST 17 U/L (15-37) 10/12/21 20:05 ALT 18 U/L (12-78) 10/12/21 20:05 Alkaline Phosphatase 70 U/L (45-117) 10/12/21 20:05 Troponin I 0.036 ng/ml (0-0.045) 10/13/21 00:05 Total Protein 7.5 gm/dl (6.4-8.2) 10/12/21 20:05 Albumin 3.2 gm/dl (3.4-5.0) L 10/12/21 20:05 Globulin 4.3 gm/dl (2.5-4.0) H 10/12/21 20:05 Albumin/Globulin Ratio 0.7 (0.9-2) L 10/12/21 20:05 Beta-Hydroxybutyric Acd mg/dl (0.2-2.81) 10/12/21 20:05 Specimen Hemolysis 10/12/21 20:05 SARS-CoV-2, RNA, NAAT NEGATIVE (NEGATIVE) 10/13/21 01:28 Impressions Cervical Spine X-Ray 10/12/21 19:37 XR cervical spine 2 or 3V HISTORY: 45 years-old Male pain, LUE radiculopathy . Pain with left upper extremity radicular symptoms COMPARISON: Chest radiograph of same day TECHNIQUE: 3 views of the cervical spine FINDINGS: Mild intervertebral disc space narrowing at C5-C6 and C6-C7 with minimal spondylitic spurring and facet arthrosis. Slight kyphosis centered at C6 or C7. No acute fracture, subluxation or endplate erosion. No prevertebral swelling. IMPRESSION: 1. No acute fracture or subluxation. 2. Mild degenerative changes of the lower lumbar spine. ACT 112: Negative or not required by law. The above report was generated using voice recognition software. It may contain grammatical, syntax or spelling errors. Electronically signed by: Antonino Will M.D. 10/12/2021 8:20 PM Chest X-Ray 10/12/21 19:52 XR chest 1V not portable HISTORY: 45 years-old Male LUE pain . Pain of the left upper extremity COMPARISON: Cervical spine radiographs of same day TECHNIQUE: PA view of the chest FINDINGS: Cardiac silhouette is upper limits of normal in size. No pneumothorax, pleural effusion, airspace consolidation or overt pulmonary edema. Nonspecific interstitial coarsening of the lung bases. Mild degenerative changes of the shoulders and spine. IMPRESSION: Mild nonspecific bibasilar interstitial coarsening likely reflects atelectasis. A nonspecific pneumonitis could appear similarly. ACT 112: Negative or not required by law. The above report was generated using voice recognition software. It may contain grammatical, syntax or spelling errors. Electronically signed by: Antonino Will M.D. 10/12/2021 8:18 PM Diagnostic Findings [facility] Patient: FARIHA CAMERON (Male) : 79 Status: ER Date: 10/12/21 22:52 Room #: History: cervical radiculopathy Slices: 629 Priors: Tech: Sharla Dickey @ [phone] Exams: CTA NECK Contrast: IV Amt: 120 ML OPTIRAY 320 Accession Numbers: [id number] Referring Physician: REFERRED SELF Preliminary Findings Only See Final Report For Complete Findings CTA NECK: The aortic arch is nondilated. The great vessel origins are widely patent. The carotid bifurcation is normal bilaterally. No atherosclerotic plaque, stenosis, or dissection is seen involving the common or internal carotid arteries. The vertebral arteries widely patent bilaterally. No stenosis or dissection. Mild degenerative changes in the lower cervical spine. Probable mild spinal st enosis at C5-6 with the canal measuring 9-10 mm. Radiologist: Rich Mathias MD Study ready at 23:09 and initial results transmitted at 01:44 *This report constitutes a preliminary interpretation only. Non-acute findings felt to be unrelated to the clinical presentation may not be discussed in this report. The study will be interpreted and a final report will be generated by the local Radiologist the following shift. To reach the [facility] radiology department call [phone]. If a discrepancy is found between the preliminary and final interpretations of this study, please notify us via our Client Portal at [email or web address], under QA Exams. You can also fax this report with a description of the discrepancy, or include the final report, to our daytime fax number [phone]. If faxing, please indicate the severity of discrepancy using one of the following categories: [ ] 1 - Agree/Informational [ ] 2 - Unlikely to Affect Management [ ] 3 - Possible Eventual Change of Management [ ] 4 - Probable Immediate Change of Management For all other patient related information, please fax us at [phone]. [id number] [facility] Patient: FARIHA CAMERON (Male) : 79 Status: ER Date: 10/12/21 22:51 Room #: History: cervical radiculopathy Slices: 1395 Priors: Tech: Sharla Dickey @ [phone] Exams: CTA CHEST Contrast: IV Amt: 120 ML OPTIRAY 320 Accession Numbers: [id number] Referring Physician: REFERRED SELF Preliminary Findings Only See Final Report For Complete Findings CTA CHEST: The pulmonary arterial tree is well-opacified with contrast. There is moderate motion artifact blurring the pulmonary vasculature. No pulmonary emboli are identified. The thoracic aorta is nondilated. There is no aneurysm or dissection. The heart is not enlarged. No mediastinal or axillary lymph and up the arm mass is seen. The lungs are moderately inflated. There is a trace amount of scattered interstitial infiltrate or perihilar subsegmental atelectasis. No focal consolidation is seen. No pneumothorax or pleural effusion is present. Limited images of the upper abdomen appear unremarkable. Mild degenerative changes in the thoracic spine. No fracture or bone lesion i dentified. Radiologist: Rich Mathias MD Study ready at 22:56 and initial results transmitted at 01:03 *This report constitutes a preliminary interpretation only. Non-acute findings felt to be unrelated to the clinical presentation may not be discussed in this report. The study will be interpreted and a final report will be generated by the local Radiologist the following shift. To reach the [facility] radiology department call [phone]. If a discrepancy is found between the preliminary and final interpretations of this study, please notify us via our Client Portal at [email or web address], under QA Exams. You can also fax this report with a description of the discrepancy, or include the final report, to our daytime fax number [phone]. If faxing, please indicate the severity of discrepancy using one of the following categories: [ ] 1 - Agree/Informational [ ] 2 - Unlikely to Affect Management [ ] 3 - Possible Eventual Change of Management [ ] 4 - Probable Immediate Change of Management For all other patient related information, please fax us at [phone]. [id number] [facility] Patient: FARIHA CAMERON (Male) : 79 Status: ER Date: 10/12/21 22:50 Room #: History: cervical radiculopathy Slices: 983 Priors: Marcellus: Wilmerdaniel Sharla @ [phone] Exams: CT C SPINE Contrast: Accession Numbers: [id number] Referring Physician: REFERRED SELF Preliminary Findings Only See Final Report For Complete Findings CT C SPINE: Mild degenerative disc disease and facet arthrosis throughout the cervical spine. No acute fracture or traumatic subluxation is identified. There is slight straightening of the normal cervical curvature suggesting spasm. Thecal sac contents are not well visualized on this examination due to body habitus and technique. If there is clinical concern for disc herniation consider MRI for better visualization Radiologist: Rich Mathias MD Study ready at 22:56 and initial results transmitted at 00:43 *This report constitutes a preliminary interpretation only. Non-acute findings felt to be unrelated to the clinical presentation may not be discussed in this report. The study will be interpreted and a final report will be generated by the local Radiologist the following shift. To reach the [facility] radiology department call [phone]. If a discrepancy is found between the preliminary and final interpretations of this study, please notify us via our Client Portal at [email or web address], under QA Exams. You can also fax this report with a description of the discrepancy, or include the final report, to our daytime fax number [phone]. If faxing, please indicate the severity of discrepancy using one of the following categories: [ ] 1 - Agree/Informational [ ] 2 - Unlikely to Affect Management [ ] 3 - Possible Eventual Change of Management [ ] 4 - Probable Immediate Change of Management For all other patient related information, please fax us at [phone]. [id number] Code Status & VTE Plan Code Status Full code VTE Prophylaxis Plan VTE Prophylaxis will be ordered: Yes PG Care Time/CCT Total # of Minutes Spent Total Time Spent with Patient: Total time spent is greater than 50% in coordination of care (as documented) at patient's floor/unit and/or counseling patient: Coding Level of Care Code INT OBSERVATION CARE 70M LVL 3 Diagnoses Neck pain M54.2 Left upper extremity swelling M79.89 Numbness of left hand R20.0 Diabetes mellitus E11.9 Hyperlipidemia E78.5 Morbid obesity with BMI of 50.0-59.9, adult E66.01; Z68.43 Hypertensive urgency I16.0
[2021-10-13] MEDS ORDERED: ACETAMINOPHEN 325 MG TAB PO PRN (02:01)
[2021-10-13] MEDS ORDERED: GLUCAGON FOR INJ 1 MG VIAL SQ PRN (02:01)
[2021-10-13] MEDS ORDERED: CARBOHYDRATES FOR HYPOGLYCEMIA PO PRN (02:01)
[2021-10-13] MEDS ORDERED: GLUCOSE 40% GEL 15 GM TUBE PO PRN (02:01)
[2021-10-13] MEDS ORDERED: NITROGLYCERIN SL 0.4 MG/TAB TAB SL PRN (02:01)
[2021-10-13] MEDS ORDERED: GLUCOSE 10 TABS/TUBE PO PRN (02:01)
[2021-10-13] MEDS ORDERED: ONDANSETRON INJ 2 MG/ML 2 ML VIAL IV PRN (02:01)
[2021-10-13] MEDS ORDERED: DEXTROSE 50% 50 ML SYRINGE IV PRN (02:01)
[2021-10-13] MEDS ORDERED: HYDROCODONE/ACETAMOPHEN 5/325MG TAB PO PRN ×2 (04:55)
[2021-10-13] MEDS ORDERED: MoRPHine SULFATE 4 MG/ML 1 ML CARP\\VIAL IV PRN (04:55)
--- NOTE | 2021-10-13 06:42 | Ultrasound Report ---
LEFT UPPER EXTREMITY VENOUS DOPPLER ULTRASOUND CLINICAL HISTORY: Left arm pain. COMPARISON STUDY: No previous studies for comparison. TECHNIQUE: Sonography of the deep venous system of the left upper extremity was performed. FINDINGS: The left internal jugular, subclavian, axillary, brachial, radial, ulnar, cephalic and basi lic veins are patent. No venous thrombus is identified within the left upper extremity. IMPRESSION: No deep venous thrombus within the left upper extremity. ACT 112: Negative or not required by law. Electronically signed by: Miki Shah M.D. 10/13/2021 6:41 AM
--- NOTE | 2021-10-13 07:09 | CT Scan Report ---
CT cervical spine wo con CLINICAL HISTORY: cervical radiculopathy . Left arm pain COMPARISON STUDY: No previous studies for comparison. CT DOSE: 3627.13 mGy.cm TECHNIQUE: Standard CT of the Cervical Spine was performed without IV contrast. A dose lowering te chnique was utilized adhering to the principles of ALARA. FINDINGS: Bones: There is mild straightening and reversal of the expected cervical lordosis related to the dege nerative changes present. There is no evidence for an acute fracture or malalignment. The heights of the vertebral bodies are maintained. The vertebral bodies are in anatomic alignment. The odontoid is intact and the atlantoaxial articulation is within normal limits. Disc spaces: At C4-5, there is mild disc space narrowing with no gross disc herniation identified. At C5-6, there is mild disc space narrowing with disc/osteophyte complex present. No gross disc herni ation is identified. At C6-C7, there is moderate to marked disc space narrowing with disc/osteophyte complex present. Agai n, no gross disc herniation is identified. Apophyseal joints:The apophyseal joints are intact bilaterally. Soft tissues:The prevertebral soft tissues are within normal limits. IMPRESSION: No acute abnormality. Degenerative disc disease at the lower 3 disc space levels, particu larly at C6-7. However, no focal disc protrusion/herniation can be identified. If the patient's sympt oms persist, follow-up MRI would be the study of choice for further evaluation. ACT 112: Positive. There are findings on this exam that require communication between the performing entity and the patient following Patient Test Result Information Act ([place] Act 112) guidelines. Electronically signed by: Mitch Flores M.D. 10/13/2021 7:08 AM
--- NOTE | 2021-10-13 07:14 | CT Scan Report ---
CT angio neck with con CLINICAL HISTORY: left arm pain, HTN COMPARISON STUDY: No previous studies for comparison. TECHNIQUE: CT Angio of the neck was performed.followed by image post processing with coronal, and sa gittal MIP reformats.. Stenosis assessment by NASCET criteria. Contrast Volume: Optiray 320, 121 ml FINDINGS: Vascular findings: Right common carotid artery: Patent without significant stenosis. Right internal carotid artery: Patent without significant stenosis. Right vertebral artery: Patent without significant stenosis. Left common carotid artery: Patent without significant stenosis. Left internal carotid artery: Patent without significant stenosis. Left vertebral artery: Patent without significant stenosis. Nonvascular findings: The parotid and submandibular salivary glands appear normal. There is no enlarged cervical adenopathy noted. The airway appears patent. The thyroid gland appears within normal limits. The lung apices ap pear within normal limits.There is evidence for degenerative change of the cervical spine. Impression: Essentially negative CT angiogram of the neck with contrast. ACT 112: Negative or not required by law. Electronically signed by: Mitch Flores M.D. 10/13/2021 7:12 AM
[2021-10-13 07:30] LABS: Estimated Average Glucose 298 mg/dl
[2021-10-13] MEDS: INSULIN ASPART 100 UNITS/ML 3 ML PEN SC SCH ×4 (07:48→17:12)
--- NOTE | 2021-10-13 08:50 | CT Scan Report ---
CT ANGIOGRAPHY OF THE CHEST DISSECTION PROTOCOL CLINICAL HISTORY: Left arm pain. Hypotension. Evaluate for dissection. COMPARISON STUDY: Chest radiograph performed earlier today. TECHNIQUE: Before and following the IV administration of 121 mL of Optiray, helical axial images of t he chest were obtained. Maximal intensity projections and sagittal and coronal reformats were viewed on an independent 3D workstation. IV contrast was administered without complication. Automated exp osure control was utilized for the study. A dose lowering technique was utilized adhering to the dianne vasquez of AISHA. FINDINGS: Caliber of the thoracic aorta is normal. There is no intramural hematoma or thoracic aorti c dissection. Mild cardiomegaly is noted. No pericardial effusion. No enlarged thoracic lymph nodes a re noted. This study was not performed to assess the pulmonary arteries. However, there is no central pulmonary embolus. No pneumothorax or pleural effusion is noted. There are mild groundglass opacitie s with mosaic attenuation within the lungs. Several perifissural right lung nodules are likely benign . No acute fracture or suspicious lesion is identified within visualized portions of the bony thorax. There is probable hepatic steatosis and hepatomegaly, partially imaged on this examination. IMPRESSION: 1. No thoracic aortic dissection. 2. Mild cardiomegaly. 3. Mild groundglass opacities with mosaic attenuation within the lungs. ACT 112: Negative or not required by law. Electronically signed by: Miki Shah M.D. 10/13/2021 8:49 AM
[2021-10-13] MEDS ORDERED: VITAMIN B COMPLEX TAB PO SCH (09:00)
[2021-10-13] MEDS ORDERED: ROSUVASTATIN CALCIUM 10 MG TAB PO SCH ×2 (09:00)
[2021-10-13] MEDS ORDERED: CHOLECALCIFEROL 1,000 UNITS 25 MCG TAB PO SCH (09:00)
[2021-10-13] MEDS: METOPROLOL TARTRATE 25 MG TAB PO SCH ×2 (09:02→09:04)
--- NOTE | 2021-10-13 11:57 | Orthopedic Consultation ---
Date of Consultation October 13, 2021 Assessment & Plan (1) Cervical stenosis of spinal canal: I did have discussion with this patient regarding symptom complex presentation. He also has multiple medical issues and would not be a surgery candidate at this time. It is reasonable for him to undergo an MRI of the cervical spine but this can be done in outpatient basis. He is not a candidate for any steroids in light of his diabetic situation. We may consider Neurontin p.o. History of Present Illness Reason for Consultation: Left arm pain Attending Physician: Brian Olmos MD History of Present Illness This very pleasant 45-year-old male that presents with a history of cervical radiculopathy several years ago. Appears it may have recurred a few days ago when he slept on his left arm. Describes pain in the left shoulder left interscapular region with numbness and tingling down his arm often below his elbow. It is intermittent in nature. Right upper extremity asymptomatic. During the discussion he denies any symptoms in his arm. Denies any coordination deficits. Allergies Allergy/AdvReac Type Severity Reaction Status Date / Time No Known Allergies Allergy Verified 10/13/21 01:17 Home Medications Medication Instructions Recorded Confirmed Type cholecalciferol (vitamin D3) 25 0 mcg PO DAILY 10/13/21 10/13/21 History mcg (1,000 unit) capsule (Vitamin D3) metformin 1,000 mg tablet 0 mg PO BID 10/13/21 10/13/21 History rosuvastatin 10 mg tablet 0 mg PO DAILY 10/13/21 10/13/21 History vitamin B complex 1 tab PO DAILY 10/13/21 10/13/21 History Patient History Medical History (Updated 10/13/21 @ 11:56 by Daniel Zuleta DO) Cervical radiculitis Diabetes mellitus Hyperlipidemia Morbid obesity with BMI of 50.0-59.9, adult Social History Smoking Status: Never smoker Hx Alcohol Use: No Hx Substance Use: No Preferred Language: Albanian Communication Ability: Effective Griddle Attendant Required: No Beliefs That Will Affect Care: None Current Living Situation: Spouse Feels Safe at Home: Yes Assistive Devices: Glasses Physical Exam Physical Exam: On exam he appears to be comfortable. Has reasonable strength testing. Sensory symmetric and intact. Deep tendon reflexes diminished. No gross Lhermitte's phenomenon or Spurling sign. Results & Data ([facility]) Vital Signs (Past 12 Hours) Vital Signs Temp Pulse Pulse Resp BP Pulse Ox Pulse Ox 10/13/21 11:49 36.7 C 89 19 167/105 H 91 10/13/21 08:32 91 H 10/13/21 06:47 36.5 C 93 H 16 190/110 H 91 10/13/21 05:23 36.6 C 96 H 20 183/120 H 93 10/13/21 04:39 92 10/13/21 03:28 36.8 C 96 H 19 147/95 H 95 10/13/21 02:01 98 H 18 144/85 H 92 10/13/21 01:35 143/97 H 10/13/21 01:29 36.6 C 93 H 20 157/105 H 97 10/13/21 00:00 91 H 20 139/84 97
[2021-10-13] MEDS ORDERED: KETOROLAC TROMETHAMINE 15 MG/ML VIAL IV ONE (13:00)
[2021-10-13] MEDS ORDERED: GABAPENTIN 100 MG CAP PO SCH (14:00)
[2021-10-13] MEDS ORDERED: INSULIN GLARGINE SOLOSTAR 100 UNITS/ML 3 ML PEN SC ONE (14:30)
--- NOTE | 2021-10-13 15:06 | XCELERA ---
[id number]
--- NOTE | 2021-10-13 16:01 | Discharge Summary ---
Date of Service October 13, 2021 Admission HPI Per Admitting Provider The patient is a 45-year-old male with a past medical history including diabetes mellitus, hyperlipidemia and morbid obesity. He presents to the emergency department with 2 days of persistent and worsening neck pain, pain and swelling left upper extremity, and numbness in first through fourth digits of his left hand. He had symptoms similar to this 2 years ago, and underwent an MRI at [facility] which showed he had a herniated disc that was treated conservatively. He underwent physical therapy and has not had a problem since that time until 2 days ago. His symptoms occurred when he fell asleep for a couple of hours with his left arm curled under his head, and his head tilted downward. He denies any recent trauma or history of previous trauma. Principal Diagnosis Cervical disc degeneration causing left arm pain Hyperglycemia Hypertension Discharge Exam Constitutional WD/WN, vitals as above + obese Eyes EOM intact bilaterally; no conjunctival abnormality ENMT external ear and nose normal, oropharynx normal Neck trachea midline, no thyromegaly normal visual inspection Respiratory normal respiratory effort, lungs clear to auscultation no respiratory distress Cardiovascular RRR, no murmur, no edema Gastrointestinal (Abdomen) Inspection/Auscultation: abdomen normal to inspection; abdomen not distended Musculoskeletal no cyanosis or clubbing, extremities motor strength 5/5 Skin no rashes, warm and dry Neurologic moves all extremities and awake Psychiatric Orientation: alert, oriented to person and cooperative Discharge Data Allergies Allergy/AdvReac Type Severity Reaction Status Date / Time No Known Allergies Allergy Verified 10/13/21 01:17 Consultations 10/13/21 01:16 ED Decision to Admit Stat 10/13/21 04:58 Consult Orthopedic Surgery Routine Ordered Studies 10/12/21 21:13 CT angio chest dissec wo/w con Urgent 10/12/21 21:45 CT angio neck with con Urgent CT cervical spine wo con Urgent 10/13/21 US venous doppler UE LT Routine Diabetes Follow up Diabetes Follow-up Needed for HgbA1c >9% Hospital Course (1) Neck pain: Neck pain/left upper extremity swelling and pain/numbness of first through fourth digits left hand. Studies ordered by the emergency department-CTA chest: No acute findings. CT cervical spine showed muscle spasm. CTA neck showed mild lower cervical disc disease and probable mild spinal stenosis at C5-6 level. Symptomatology of left hand would imply involvement of C6-7. Consulted Dr. Merlyn kwong felt that MRI could be appropriate, but would pursue outpatient. - Discharged on ibuprofen, small course of [place]. Will see Dr. Zuleta as outpatient. (2) Hypertensive urgency: Elevated blood pressure/hypertensive urgency. - Echo was normal. - BP improved with pain control. On discharge BP closer to 170/100. No HTN meds at home, so started losartan 50 mg PO HS given he is diabetic. (3) Left upper extremity swelling: Ordered venous Doppler left upper extremity -> No DVT in left arm. (4) Numbness of left hand: See above (5) Diabetes mellitus: A1c was 12.0%. Seen by DM educator. He has no interest in starting insulin. Blood sugars were controlled in the hospital with SQ and IV insulin. - D/c on home metformin - Prescribed Trulicity as well which his PCP had previously recommended. (6) Hyperlipidemia: On rosuvastatin unknown dose, will place on 10 mg daily (7) Morbid obesity with BMI of 50.0-59.9, adult: Noted Total Time Total Time Spent Total Time Spent (In Minutes): 35 Discharge Plan Discharge Items Patient Disposition: Home - Self-Care Reason For Visit: HYPERTENSIVE URGENCY, LEFT SHOULDER/ARM PAIN. INCR Discharge Diagnosis: Hypertension, left arm pain likely from cervical degeneration Activity: Resume your previous activity Non-emergency contact: Primary Care Provider Call non-emergency contact if: your symptoms worsen and your pain is not controlled Follow-up/Referrals: Sebastian Hooks DO [Primary Care Provider] - Diet: Carb Consistent or DM2 Addtl Attending Provider Instructions: Mr. Bal, You were admitted to the hospital for left arm pain. You also had high blood pressure, and the ER team was worried about your heart. Luckily your labs remained stable, and the echocardiogram of your heart was good. Your heart has a good squeeze and has no areas that indicate prior damage. Your left arm pain is likely stemming from your long-standing cervical disk degeneration. Dr. Zuleta would like to follow up with you as an outpatient to see how you're doing in a week or so with this. If you are still having pain, an MRI may be in order. In the meantime, we are going to trial a round of anti-inflammatory medication to help try to improve the pain. You should take this medication 3 times per day for the next 5 days. This is a higher dose than you can take long-term, but will help reduce the inflammation. Please drink plenty of water and stay hydrated while on this medication. After the 5 days, do not continue taking the [id number]-[id number] version at the same dosage as this could hurt your kidneys and stomach long-term. I have also given a *small* number of [place]. This should be used sparingly and as rarely as possible. The longer anyone uses opioids and the higher the dose, the higher the likelihood of dependence and addiction. I do not want you to be in pain, but opioids are not a good way to manage long-term pain due to their potential for addiction and side effects. For your blood sugars, we are sending a script in for Trulicity which should help reduce your blood sugars. Finally, we are sending in a script for a blood pressure medication as we think your blood pressure is likely running high at home. This will start at a low- medium level and can be adjusted by your PCP as needed. Pending Studies at Discharge: No Stand-Alone Forms: My [facility] [address], Smoking Cessation Medications and DC Order Prescriptions: New losartan 50 mg tablet 50 mg PO HS Qty: 30 RF: 1 Trulicity 4.5 mg/0.5 mL pen injector 0.75 mg subcut .weekly Qty: 0.5 RF: 0 ibuprofen 600 mg tablet 600 mg PO TID 5 Days Qty: 15 RF: 0 hydrocodone-acetaminophen 5-325 mg tablet 1 tab PO TID PRN (Reason: pain) Qty: 10 RF: 0 Continued vitamin B complex Tablet 1 tab PO DAILY RF: 0 cholecalciferol (vitamin D3) [Vitamin D3] 25 mcg (1,000 unit) Capsule 0 mcg PO DAILY RF: 0 Changed metformin 1,000 mg Tablet 1,000 mg PO BID Qty: 60 RF: 0 rosuvastatin 10 mg Tablet 10 mg PO DAILY Qty: 30 RF: 0 Discharge Orders: Discharge Order (Routine); Ordered 10/13/21 Ordered By: Brian Olmos Admission Data Admit Date/Time: 10/13/21 01:45 Attending Provider: Brian Olmos Admit Provider: Daniel Ye Primary Care Provider: Sebastian Hooks Other Providers: Daniel Zuleta ; Brian Olmos. Coding Level of Care Code 95212 OBS Care - Discharge Diagnoses Neck pain M54.2 Hypertensive urgency I16.0 Left upper extremity swelling M79.89 Numbness of left hand R20.0 Diabetes mellitus E11.9 Hyperlipidemia E78.5 Morbid obesity with BMI of 50.0-59.9, adult E66.01; Z68.43
[2021-10-13] MEDS ORDERED: LOSARTAN POTASSIUM 50 MG TAB PO STA (17:05)
[2021-10-13] MEDS ORDERED: lisinopril 20 MG TAB PO SCH (21:00)
--- NOTE | 2021-10-14 06:13 | Electrocardiogram Report ---
Test Reason : Blood Pressure : / mmHG Vent. Rate : 100 BPM Atrial Rate : 100 BPM P-R Int : 186 ms QRS Dur : 100 ms QT Int : 344 ms P-R-T Axes : 056 250 048 degrees QTc Int : 443 ms Normal sinus rhythm Possible Left atrial enlargement Incomplete right bundle branch block Right ventricular hypertrophy Anterior infarct Abnormal ECG No previous ECGs available Confirmed by Pablo Ng ([id number]) on 10/14/2021 6:13:29 AM Referred By: REFERRED SELF Confirmed By:Pablo Ng
--- NOTE | 2021-10-14 06:25 | Electrocardiogram Report ---
Test Reason : Blood Pressure : / mmHG Vent. Rate : 091 BPM Atrial Rate : 091 BPM P-R Int : 192 ms QRS Dur : 110 ms QT Int : 364 ms P-R-T Axes : 061 241 051 degrees QTc Int : 447 ms Normal sinus rhythm Incomplete right bundle branch block Anterior infarct Abnormal ECG When compared with ECG of 12-OCT-2021 19:11, No significant change was found Confirmed by Pablo Ng ([id number]) on 10/14/2021 6:25:06 AM Referred By: REFERRED SELF Confirmed By:Pablo Ng
[2021-10-14] MEDS ORDERED: INSULIN GLARGINE SOLOSTAR 100 UNITS/ML 3 ML PEN SC SCH (09:00)
== END 2021-10-13 18:00 | disposition home or self-care (01) ==
LOC: EDINP 18:18 → ED 18:18 → SUATTDRO 10-13 01:45 → 2S 10-13 02:00